=== PATIENT | male | born 1995 | race Caucasian/White ===

== ENCOUNTER → 2017-08-11 | Outpatient (CLI) | payer OTHER ==
--- NOTE | 2017-08-12 07:29 | RADIOLOGY REPORT (SQ) ---
EXAM DESCRIPTION: PET CT SKULL/THIGH COMPLETED DATE/TIME: 08/11/2017 6:18 pm REASON FOR STUDY: TESTICULAR CANCER COMPARISON: [facility] CT chest abdomen and pelvis 06/17/2017. RADIONUCLIDE AND DOSE: 11.3 mCi F18 FDG The route of agent administration: Intravenous FASTING BLOOD SUGAR: 78 mg/dl CONTRAST TYPE AND DOSE: No CT contrast given. TECHNIQUE: Blood glucose level was verified. Above dose of FDG was injected intravenously. 2-D seg mented attenuation correction images were obtained from the base of the skull to the midthighs. Nonc ontrast CT images were obtained for attenuation correction and fusion with emission images. CT image s were performed without oral or intravenous contrast and are not sensitive for parenchymal lesions. A series of overlapping emission PET images were obtained. Images reviewed and manipulated at [facility] work station by the radiologist. Images stored on PACS. LIMITATIONS: None. FINDINGS: HEAD AND NECK: Pharyngeal tonsils are normal size but increased in activity, right 10.5 MCCANN V, left 12 SUV. 1.2 x 0.9 cm right jugulodigastric lymph node SUV 6 point. 0.9 x 0.8 cm left jugulodigastric lymph node SUV 8 Less than 1 cm right supraclavicular lymph node SUV 3.4. CHEST: There is mediastinal adenopathy as follows: 1.3 x 0.8 cm right peritracheal lymph node at the thoracic inlet SUV 2.9 2.3 x 1.4 cm right peritracheal lymph node upper mediastinum SUV 7.5 2.4 x 1.5 cm prevascular conglomerate of lymph nodes SUV 7.0 2.1 x 1.5 cm pretracheal lymph node SUV 7.5 1.8 x 1.1 cm AP window lymph node SUV 5.3 2.2 x 1.4 cm sub- carinal lymph node SUV 6.1 1 x 0.6 cm posterior mediastinal lymph node between the aorta and lower 3rd of the esophagus, SUV 3 Right hilar small lymph nodes are present difficult to measure size, SUV 3.4. Left hilar lymph nodes are present, difficult to measure size, SUV 3.4. ABDOMEN AND PELVIS: Upper abdominal adenopathy is present as follows: 1.3 x 0.8 cm lymph node near the gastric cardia SUV 3 Portacaval space lymph node difficult to measure in size, SUV 5.7 1.4 x 1.1 cm aortocaval lymph node SUV 4.7 PROXIMAL LOWER EXTREMITIES: No areas of abnormal metabolic activity in the soft tissues of the lower extremities. BONES: No abnormal metabolic activity in the visualized skeleton. ADDITIONAL CT FINDINGS: Tiny less than 5 mm nodule posterior left upper lobe near the major fissure OTHER: Blood pool background activity 1.4 SUV. Liver background activity 1.7 SUV. 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
== END ==
LOC: RAD 14:22
PROVIDERS: ATTEND Urology
DX: C62.90 Malignant neoplasm of unspecified testis, unspecified whether descended or undescended (principal); R59.1 Generalized enlarged lymph nodes; R91.1 Solitary pulmonary nodule
CPT/HCPCS: 78815; A9552